=== PATIENT | female | born 1985 | race Two or more races ===

== ENCOUNTER → 2023-11-19 | Outpatient (REF) | payer OTHER | LOC: M LAB REF 16:18 | PROVIDERS: ATTEND Student in an Organized Health Care Education/Training Program | DX: R30.0 Dysuria (principal) ==

== ENCOUNTER 2024-04-05 11:16 | Emergency (ER) | payer OTHER ==
[~2024-04-05] VITALS: Ht 165.1 cm; Wt 109.1 kg
[2024-04-05 13:11] LABS: BASO # 0.1 10^3/uL (0.0-0.2); BASO % 0.6 % (0.0-1.0); EOS % 0.2 % (0.0-3.0); HEMATOCRIT 41.4 % (36.0-47.0); LYMPH # 1.2 10^3/uL (1.5-5.0); LYMPH % 13.5 % (24.0-44.0); MEAN CORPUSCULAR HEMOGLOBIN 30.2 pg (27.0-33.0); MEAN CORPUSCULAR HGB CONC 33.8 g/dl (32.0-36.5); MEAN CORPUSCULAR VOLUME 89.4 fl (80.0-96.0); MONO # 0.3 10^3/uL (0.0-0.8); MONO % 3.6 % (2.0-8.0); NEUTROPHILS # 7.2 10^3/uL (1.5-8.5); NEUTROPHILS % 81.6 % (36.0-66.0); PLATELET COUNT, AUTOMATED 292 10^3/uL (150-450); RED BLOOD COUNT 4.63 10^6/uL (4.00-5.40); WHITE BLOOD COUNT 8.8 10^3/uL (4.0-10.0)
[2024-04-05 13:38] LABS: LIPASE 28 U/L (12-53)
[2024-04-05 13:40] LABS: ALBUMIN 3.4 G/DL (3.2-5.2); ALKALINE PHOSPHATASE 108 U/L (46-116); ALT/SGPT 43 U/L (7.0-40); AST/SGOT 28 U/L (<34); BILIRUBIN,DIRECT < 0.1 MG/DL (<0.4); BILIRUBIN,TOTAL 0.3 MG/DL (0.3-1.2); BLOOD UREA NITROGEN 13 MG/DL (9-23); CALCIUM LEVEL 9.3 MG/DL (8.5-10.1); CARBON DIOXIDE LEVEL 27 MMOL/L (20-31); CHLORIDE LEVEL 108 MMOL/L (98-107); CREATININE FOR GFR 0.78 MG/DL (0.55-1.30); GLOMERULAR FILTRATION RATE > 60.0 (>60); GLUCOSE, FASTING 91 MG/DL (60-100); POTASSIUM SERUM 4.3 MMOL/L (3.5-5.1); SODIUM LEVEL 140 MMOL/L (136-145); TOTAL PROTEIN 7.4 G/DL (5.7-8.2)
[2024-04-05 13:42] LABS: HCG, SERUM QUALITATIVE NEGATIVE (NEGATIVE)
[2024-04-05] MEDS ORDERED: ISOVUE-370 76% 100ML VIAL As Ordered ONE (14:16)
[2024-04-05] MEDS: ONDANSETRON 4MG 2ML VIAL IV ONE (14:21)
[2024-04-05] MEDS: MORPHINE 2 MG/ML 1ML VIAL IV ONE (14:21)
[2024-04-05] MEDS ORDERED: MULT-90 PO (16:15)
[2024-04-05 16:35] VITALS: BP 101/59; TEMP 98; O2SAT 99
== END 2024-04-05 17:30 | disposition home or self-care (01) ==
LOC: M ED 11:16
DX: R10.9 Unspecified abdominal pain (principal); Z79.899 Other long term (current) drug therapy
CPT/HCPCS: 74177; 80047; 80048; 80076; 81001; 83605; 83690; 84703; 85025; 96374; 99284; J2405; Q9967

== ENCOUNTER → 2024-08-14 | Outpatient (CLI) | payer OTHER ==
[~2024-08-14] MED LIST: MULT-90 PO
== END ==
LOC: M SOG 07:53
PROVIDERS: ATTEND Orthopaedic Surgery
DX: M79.644 Pain in right finger(s) (principal)

== ENCOUNTER 2025-03-23 06:37 | Day surgery (SDC) | payer OTHER ==
[~2025-03-23] VITALS: Ht 165.1 cm; Wt 106.6 kg
[~2025-03-23 06:37] MED LIST changes: +LIDOCAINE W/EPINEPHrine 1% 20 ML VIAL XX ONE; +PHEN15CA6 PO; +SODIUM BICARBONATE 8.4% INJ 50MEQ/50ML VIAL XX ONE
[2025-03-23 08:18] VITALS: BP 137/70; TEMP 97.1; O2SAT 97
[2025-03-23] MEDS: ACETAMINOPHEN 500 MG TAB PO PRN (08:41)
[2025-03-23] MEDS: IBUPROFEN 400 MG TAB PO ONE (08:41)
== END 2025-03-23 08:43 | disposition home or self-care (01) ==
LOC: M SDC 06:37
PROVIDERS: ATTEND Orthopaedic Surgery Hand Surgery
DX: M65.311 Trigger thumb, right thumb (principal); M65.331 Trigger finger, right middle finger